=== PATIENT | male | born 1995 | race Hispanic/Latino ===

== ENCOUNTER 2017-02-17 00:56 | Observation (INO) | payer BC ==
[2017-02-17 01:20] VITALS: O2SAT 99
--- NOTE | 2017-02-17 01:55 | ED PDOC ---
HPI: Psych/Substance Abuse Time Seen by Provider: 02/17/17 01:12 Chief Complaint (Nursing): Alcohol Ingestion Chief Complaint (Provider): ETOH - Brought by EMS History Per: Patient, EMS Modifying Factor(s): Alcohol Additional Complaint(s): Pt denies drug use. Reports drinking tonight. Brought in by EMS. Denies complaints. Past Medical History Reviewed: Historical Data, Nursing Documentation, Vital Signs Vital Signs: Last Vital Signs Temp 97.5 F L 02/17/17 01:13 Pulse 58 L 02/17/17 01:13 Resp 18 02/17/17 01:13 BP 137/88 02/17/17 01:13 Pulse Ox 99 02/17/17 01:13 - Medical History PMH: No Chronic Diseases - Surgical History Surgical History: No Surg Hx - Family History Family History: States: No Known Family Hx - Living Arrangements Living Arrangements: With Family - Allergies Allergies/Adverse Reactions: Allergies Allergy/AdvReac Type Severity Reaction Status Date / Time No Known Allergies Allergy Verified 02/17/17 01:54 Review of Systems ROS Statement: Except As Marked, All Systems Reviewed And Found Negative Constitutional: Negative for: Fever, Chills Physical Exam - Reviewed Nursing Documentation Reviewed: Yes Vital Signs Reviewed: Yes - Physical Exam Appears: Positive for: Well, Non-toxic, No Acute Distress Head Exam: Positive for: ATRAUMATIC, NORMAL INSPECTION, NORMOCEPHALIC Skin: Positive for: Normal Color, Warm, DRY Eye Exam: Positive for: Normal appearance ENT: Positive for: Normal ENT Inspection Neck: Positive for: Normal, Painless ROM Cardiovascular/Chest: Positive for: Regular Rate, Rhythm Respiratory: Positive for: Normal Breath Sounds. Negative for: Accessory Muscle Use, Respiratory Distress Back: Positive for: Normal Inspection Extremity: Positive for: Normal ROM Neurologic/Psych: Positive for: Alert, Oriented - ECG O2 Sat by Pulse Oximetry: 99 Medical Decision Making Medical Decision Making: Endorsed at 0600 pending sobriety. ED OBSERVATION Discharge: Yes Date of observation admission: 02/17/17 Time of observation admission: 01:54 - Observation admission statement Patient is being placed in observation because:: Alcohol abuse - Goals of Observation Goals of observation are:: Sobriety - Progress Note Progress Note: 02/17/17 04:05 Pt sleeping, NAD 02/17/17 05:20 Pts vitals stable. NAD Disposition - Clinical Impression Clinical Impression: Alcohol abuse with intoxication - Patient ED Disposition Is Patient to be Admitted: Transfer of Care - Disposition Disposition: Transfer of Care Disposition Time: 06:00 Condition: STABLE
--- NOTE | 2017-02-17 06:20 | ED PDOC ---
- ECG O2 Sat by Pulse Oximetry: 99 Medical Decision Making Medical Decision Makin: Patient signed over to me from Monica Rosales PA-C pending clinical sobriety. 0700: Patient signed over to Dr. Anaya pending clinical sobriety. Scribe Attestation: Documented by Helga Martinez acting as a scribe for Anna Cali MD. Provider Scribe Attestation: All medical record entries made by the Scribe were at my direction and personally dictated by me. I have reviewed the chart and agree that the record accurately reflects my personal performance of the history, physical exam, medical decision making, and the department course for this patient. I have also personally directed, reviewed, and agree with the discharge instructions and disposition. Disposition - Clinical Impression Clinical Impression: Alcohol abuse with intoxication - POA Present On Arrival: None - Disposition Disposition: Transfer of Care Disposition Time: 07:00 Condition: FAIR Patient Signed Over To: Augustine Anaya Handoff Comments: Pending clinical sobriety.
--- NOTE | 2017-02-17 08:00 | ED PDOC ---
- ECG O2 Sat by Pulse Oximetry: 99 - Progress Re-evaluation Time: 07:59 Condition: Improved (Awake alert oriented. No focal neuro deficits) Disposition - Clinical Impression Clinical Impression: Alcohol abuse with intoxication - POA Present On Arrival: None - Disposition Disposition: Routine/Home Disposition Time: 08:00 Condition: FAIR
[2017-02-17 09:01] VITALS: BP 116/79; PULSE 86; RESP 18; TEMP 97.9
== END 2017-02-17 03:33 | disposition home or self-care (01) ==
LOC: H.ER 00:56 → H.EROBSV 01:59
PROVIDERS: ADMIT Emergency Medicine; ATTEND Emergency Medicine
DX: F10.129 Alcohol abuse with intoxication, unspecified (principal)
CPT/HCPCS: 36415; 82948; 99281; G0378; G0480